=== PATIENT | male | born 1955 | race Caucasian/White ===

== ENCOUNTER 2016-11-30 14:14 | Emergency (ER) | payer OTHER ==
[~2016-11-30] VITALS: Ht 175.3 cm; Wt 77.1 kg
--- NOTE | ~2016-11-30 | CR109 ---
[facility] A Service of [facility] & [facility] RADIOLOGY TEXT RESULTS PATIENT: SHONNA THORNE LOCATION: CFTX : 57 UNIT #: [id number] AGE: [address]: Daniela Bradley SEX: M ORDER DR: [id number] [facility] [address] [place], [place] [address] [id number] MR#: [id number] Acc #: [id number] NAME: SHONNA THORNE. : 1955 SEX: M STUDY DATE/TIME: 11/30/2016 14:48 UNIT: [facility] ROOM: STUDY DESCRIPTION: CR Finger 2 View 2nd Rt Attending Physician: Daniela Bradley Pa-C Referring Physician: Julian Howard A.P.R.N. Ordering Physician: Daniela Bradley Pa-C Primary Care Physician: Julian Howard A.P.R.N. MEDICAL IMAGING REPORT This report is preliminary unless electronic signature is present EXAM 3 views of the right second finger. DATE 11/30/2016 HISTORY Pain and laceration to the posterior right second finger. Injury occurred today. FINDINGS There is no evidence of fracture, dislocation, or radiopaque foreign body. IMPRESSION Normal right second finger. Dictated by... Kori Busby M.D. THIS IS AN ELECTRONICALLY VERIFIED REPORT Kori Busby M.D. at 12/03/2016 8:34 AM ROZ/kong TD: 12/01/2016 01:59 JOB #: [id number] MEDICAL IMAGING REPORT Page 1 of 1 COPY
[~2016-11-30 14:14] MED LIST: ANTIINFLAMMATORY PO; ANUSOL-HC SUPP25 M1 PR; BACTRIM DS TABL1 TAB PO; CHOLESTEROL PILL PO; GLUCOTROL PO; HCTZ PO; MED FOR DIABETES PO; METFORMIN PO; REBETOL200 MG PO; VICODIN 5/500 T1 TAB PO; WATER PILL PO; [UNRECOGNIZED DRUG - REMARK] PO
== END 2016-11-30 15:47 | disposition home or self-care (01) ==
LOC: CFTX 14:14 → CED 14:14 → CFTX 14:43
DX: S61.210A Laceration without foreign body of right index finger without damage to nail, initial encounter (principal); E11.9 Type 2 diabetes mellitus without complications; I10 Essential (primary) hypertension; E78.5 Hyperlipidemia, unspecified; W27.8XXA Contact with other nonpowered hand tool, initial encounter; Y92.009 Unspecified place in unspecified non-institutional (private) residence as the place of occurrence of the external cause
CPT/HCPCS: 12001; 73140; 99283